=== PATIENT | female | born 1965 | race American Indian/Alaskan Native ===

== ENCOUNTER 2019-06-16 05:30 | Day surgery (SDC) | payer MEDICAID ==
[2019-06-16] MEDS ORDERED: fentaNYL 100 MCG/2 ML SDV IV ONE ×3 (05:31→06:29)
[2019-06-16] MEDS ORDERED: Midazolam 1 MG/ML 2 ML SDV IV ONE ×3 (05:31→06:30)
[2019-06-16] MEDS ORDERED: Dextrose 5%-0.45% NaCl 1,000 ML IV SCH ×2 (06:00→06:45)
[2019-06-16] MEDS ORDERED: Midazolam 1 MG/ML 2 ML SDV ONE (06:13)
[2019-06-16] MEDS ORDERED: fentaNYL 100 MCG/2 ML SDV ONE (06:13)
[2019-06-16] MEDS ORDERED: Sodium Chloride 0.9% 10 ML Syringe FLUSH PRN (06:42)
--- NOTE | 2019-06-16 07:17 | OR ---
DATE: 06/16/2019 PROCEDURE: Esophagogastroduodenoscopy and multiple pinch biopsies. INSTRUMENT USED: [id number]-HQ190 Olympus video panendoscope. PREMEDICATIONS: No oral or topical anesthesia used. Fentanyl 100 mcg intravenous, Versed 2 mg intravenous. The procedure was done under pulse oximetry, BP recording, and quality assurance monitor body. INDICATION: The patient with a long-standing heartburn along with upper abdominal pain, unexplained and not responsive to medical measures, on high-dose PPI as well as other acid suppressants. Esophagogastroduodenoscopy is performed for detection of any active erosive lesions, York esophagus and/or malignancy also under consideration, H. pylori status to be determined, endoscopic hemostasis therapy if needed. DESCRIPTION OF PROCEDURE: The scope was passed with ease. Adequate visualization of the esophagus was made from proximal to distal areas. No upper esophageal lesions identified. No distal esophageal stricture. No uphill or downhill esophageal varices. No Stacey-Casey tear. No evidence of erosive esophagitis by Melrose criteria. No esophageal polyp or tumor mass identified. Z-line was seen at around 40 cm distal to the oral verge, configuration consistent with grade 1 by ZAP classification. No proximal gastric varices noted. Gastric fundus examination by retroflexion showed no polypoid lesions. No gastric ulcer, malignant mass, or vascular ectasia identified. Mild patchy erythema was noted in the antrum. Duodenal bulb showed no ulcer. Visualized second part of the duodenum was unremarkable. Multiple pinch biopsies were taken from the gastric antrum and proximal body and sent for PyloriTek test for H. pylori, and if negative in an hour, the tissue is to be sent for histopathology. No bleeding was noted from any of the visualized areas at the completion of examination. Photographs were taken of the duodenal bulb, gastric antrum, fundus, and distal esophagus. IMPRESSION: Normal study. The patient tolerated the procedure well. [facility] /[id number]
[2019-06-16 09:03] VITALS: PULSE 76
[2019-06-16 09:04] VITALS: BP 115/74
== END 2019-06-16 08:38 | disposition home or self-care (01) ==
LOC: DL.ENDO 05:30
PROVIDERS: ATTEND Internal Medicine Gastroenterology
DX: R12 Heartburn (principal); R10.10 Upper abdominal pain, unspecified; I10 Essential (primary) hypertension; K21.9 Gastro-esophageal reflux disease without esophagitis; E66.09 Other obesity due to excess calories; Z90.49 Acquired absence of other specified parts of digestive tract; Z88.0 Allergy status to penicillin; Z88.2 Allergy status to sulfonamides; Z88.3 Allergy status to other anti-infective agents; Z88.5 Allergy status to narcotic agent; Z88.8 Allergy status to other drugs, medicaments and biological substances
CPT/HCPCS: 43239; 87077; J2250; J3010; J7042

== ENCOUNTER 2019-11-16 22:20 | Emergency (ER) | payer MEDICAID ==
[2019-11-16] MEDS ORDERED: diphenhydrAMINE 50 MG Cap PO ONE (22:21)
[2019-11-16] MEDS ORDERED: methylPREDNISolone Sodium Succinate 125 MG/2 ML SDV IVPUSH ONE (23:54)
[2019-11-16] MEDS ORDERED: diphenhydrAMINE 50 MG/ML SDV IVPUSH ONE (23:54)
[2019-11-16 23:55] VITALS: BP 164/70; PULSE 99
[2019-11-16] MEDS ORDERED: Famotidine 20 MG/2 ML SDV IVPUSH ONE (23:55)
[2019-11-17] MEDS ORDERED: Sodium Chloride 0.9% 500 ML IV ONE (00:01)
--- NOTE | 2019-11-17 00:28 | EDM.PDOC ---
ED HPI GENERAL MEDICAL PROBLEM - General Chief Complaint: Allergic Reaction Stated Complaint: ALERGIC REACTION TO MEDICATION Time Seen by Provider: 11/16/19 23:00 Source of Information: Reports: Patient History Limitations: Reports: No Limitations - History of Present Illness INITIAL COMMENTS - FREE TEXT/NARRATIVE: ED with c/o allergic reaction to some medication, unsure what. Eye swollen and feels like lower legs swollen sinc eafternoon. Has not tried anything. In GF today had MRI without contrast but noted that she had to to have breathing tube placed so she could lie on her back for the test. No rash, top of eyes feel like dry skin. No difficulty swallowing. No known change in diet or environmental products. - Related Data Allergies Allergy/AdvReac Type Severity Reaction Status Date / Time amoxicillin [Amoxicillin] Allergy Rash Verified 11/17/19 00:03 azithromycin [From Zithromax] Allergy Rash Verified 11/17/19 00:03 cyclobenzaprine Allergy Other Verified 11/17/19 00:03 metronidazole Allergy Headache Verified 11/17/19 00:03 nitrofurantoin Allergy Rash Verified 11/17/19 00:03 [From Macrodantin] Home Meds: Home Meds Fluticasone Propionate [Flovent HFA 44 MCG] 1 puff INH BID 11/13/13 [History] Triamterene/Hydrochlorothiazid [Triamterene-HCTZ 37.5-25 MG] 1 each PO DAILY 12/20 [History] ramipriL [Altace] 2.5 mg PO DAILY 11/13/13 [History] sitaGLIPtin Phos/Metformin HCl [Janumet 50-500 mg Tablet] 100 - 1,000 mg PO BID 11/13/13 [History] Fexofenadine [Page] 180 mg PO DAILY 02/15/16 [History] Ibuprofen [Motrin] 800 mg PO BID PRN 02/15/16 [History] methocarbamoL [Methocarbamol] 750 mg PO TID 02/15/16 [History] atorvaSTATin [Lipitor] 10 mg PO BEDTIME 07/07/17 [History] Acetaminophen [Acetaminophen Extra Strength] 1,000 mg PO Q6H PRN 06/15/19 [ History] Albuterol Sulfate [Proventil Hfa] 1 - 2 puff INH ASDIRECTED 06/15/19 [History] Diphenhyd/Lidocaine/Nystatin [Magic Mouthwash] 15 ml PO QID PRN 06/15/19 [ History] Famotidine 20 mg PO BID PRN 06/15/19 [History] Lidocaine-Menthol Patch 1 patch TOP ASDIRECTED PRN 06/15/19 [History] Montelukast [Singulair] 10 mg PO DAILY 06/15/19 [History] Simethicone 80 mg PO ASDIRECTED 06/15/19 [History] Past Medical History HEENT History: Reports: Allergic Rhinitis Cardiovascular History: Reports: High Cholesterol, Hypertension Respiratory History: Reports: Asthma Gastrointestinal History: Reports: Chronic Diarrhea, GERD Genitourinary History: Reports: None [employer] CONTROL [employer]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: Reports: Endometriosis Musculoskeletal History: Reports: Back Pain, Chronic, Neck Pain, Chronic Neurological History: Reports: None Psychiatric History: Reports: Anxiety, Other (See Below) Other Psychiatric History: CLAUSTROPHOBIA Endocrine/Metabolic History: Reports: Diabetes, Type II, Obesity/BMI 30+ Hematologic History: Reports: None Immunologic History: Reports: None Oncologic (Cancer) History: Reports: None Dermatologic History: Reports: None - Infectious Disease History Infectious Disease History: Reports: None - Past Surgical History Head Surgeries/Procedures: Reports: None HEENT Surgical History: Reports: Other (See Below) Other HEENT Surgeries/Procedures: S/P EXTERNAL EAR SURGERY Cardiovascular Surgical History: Reports: None Respiratory Surgical History: Reports: None GI Surgical History: Reports: Cholecystectomy, EGD Female Surgical History: Reports: Hysterectomy Endocrine Surgical History: Reports: None Neurological Surgical History: Reports: Laminectomy Musculoskeletal Surgical History: Reports: None Oncologic Surgical History: Reports: None Social & Family History - Family History Family Medical History: Noncontributory - Tobacco Use Smoking Status *Q: Never Smoker - Caffeine Use Caffeine Use: Reports: Coffee Other Caffeine Use: NO COFFEE FOR A FEW WEEKS - Recreational Drug Use Recreational Drug Use: No - Living Situation & Occupation Living situation: Reports: , with Family Occupation: Employed ED ROS ALLERGIC REACTION - Review of Systems Review Of Systems: Comprehensive ROS is negative, except as noted in HPI. ED EXAM GENERAL NO PERIP PULSE - Physical Exam Exam: See Below Exam Limited By: No Limitations General Appearance: Alert, Mild Distress, Obese Eye Exam: Bilateral Eye: Normal Fundi, Other (upper and lower lids mild swelling ) Ears: Normal External Exam Nose: Normal Inspection Throat/Mouth: Normal Inspection, Normal Lips, Normal Voice, No Airway Compromise Head: Atraumatic, Normocephalic Neck: Normal Inspection Respiratory/Chest: No Respiratory Distress, Lungs Clear, Normal Breath Sounds Cardiovascular: Normal Peripheral Pulses, Regular Rate, Rhythm, No Edema GI/Abdominal: Normal Bowel Sounds, Soft Back Exam: Decreased Range of Motion Extremities: Normal Inspection Psychiatric: Normal Affect Skin Exam: Warm, Dry, Intact, Normal Color Course - Vital Signs Last Recorded V/S: Last Vital Signs Temp 97.2 F 11/16/19 22:35 Pulse 99 11/16/19 22:35 Resp 18 11/16/19 22:35 BP 164/70 H 11/16/19 22:35 Pulse Ox 100 11/16/19 22:35 - Orders/Labs/Meds Meds: Medications Discontinued Medications Generic Name Dose Route Start Last Admin Trade Name Freq PRN Reason Stop Dose Admin Diphenhydramine HCl 25 mg 11/16/19 23:54 11/17/19 00:07 Benadryl IVPUSH 11/16/19 23:55 25 mg ONETIME ONE Administration Diphenhydramine HCl Confirm 11/17/19 00:33 11/17/19 01:07 Benadryl Administered 11/17/19 00:34 Not Given Dose 150 mg .ROUTE .STK-MED ONE Famotidine 20 mg 11/16/19 23:55 11/17/19 00:10 Pepcid IVPUSH 11/16/19 23:56 20 mg ONETIME ONE Administration Sodium Chloride 500 mls @ 150 mls/hr 11/17/19 00:01 11/17/19 00:04 Normal Saline IV 11/17/19 03:20 150 mls/hr .BOLUS ONE Administration Methylprednisolone Sodium Succinate 125 mg 11/16/19 23:54 11/17/19 00:04 Solu-Medrol IVPUSH 11/16/19 23:55 125 mg ONETIME ONE Administration - Re-Assessments/Exams Free Text/Narrative Re-Assessment/Exam: 11/17/19 02:03 Less edema to kim orbital area following benadryl Departure - Departure Time of Disposition: 00:26 Disposition: Home, Self-Care 01 Condition: Good Clinical Impression: Allergic reaction Qualifiers: Encounter type: initial encounter Qualified Code(s): T78.40XA - Allergy, unspecified, initial encounter - Discharge Information *PRESCRIPTION DRUG MONITORING PROGRAM REVIEWED*: Not Applicable *COPY OF PRESCRIPTION DRUG MONITORING REPORT IN PATIENT ANCA: Not Applicable Instructions: Allergies, Adult, [id number] Referrals: PCP,None [Primary Care Provider] - Forms: ED Department Discharge Additional Instructions: benadryl 25-50mg every 4 hours as needed for allergy symptoms pepcid 20mg one twice daily for 5 days follow with primary care this week urgent follow up if difficulty breathing Sepsis Event Note (ED) - Evaluation Sepsis Screening Result: No Definite Risk - Focused Exam Vital Signs: Vital Signs Temp Pulse Resp BP Pulse Ox 11/16/19 22:35 97.2 F 99 18 164/70 H 100
[2019-11-17] MEDS ORDERED: diphenhydrAMINE 50 MG Cap ONE (00:33)
== END 2019-11-17 00:37 | disposition home or self-care (01) ==
LOC: DL.ED 22:20
DX: T78.40XA Allergy, unspecified, initial encounter (principal); I10 Essential (primary) hypertension; E78.00 Pure hypercholesterolemia, unspecified; J45.909 Unspecified asthma, uncomplicated; K21.9 Gastro-esophageal reflux disease without esophagitis; F41.9 Anxiety disorder, unspecified; E66.9 Obesity, unspecified; Z68.34 Body mass index [BMI] 34.0-34.9, adult; Z88.1 Allergy status to other antibiotic agents; Z88.8 Allergy status to other drugs, medicaments and biological substances; Z79.899 Other long term (current) drug therapy
CPT/HCPCS: 96374; 96375; 99283; J1200; J2930; J3490; J7040; Q0163

== ENCOUNTER 2022-06-08 05:49 | Emergency (ER) | payer MEDICAID ==
[2022-06-08 06:13] VITALS: BP 164/88; PULSE 97
[2022-06-08] MEDS ORDERED: Ketorolac 30 MG/ML SDV IM ONE (06:44)
[2022-06-08] MEDS ORDERED: Orphenadrine 60 MG/2 ML Inj IM ONE (06:44)
== END 2022-06-08 08:56 | disposition home or self-care (01) ==
LOC: DL.ED 05:49
DX: G89.29 Other chronic pain (principal); M54.6 Pain in thoracic spine; E78.00 Pure hypercholesterolemia, unspecified; I10 Essential (primary) hypertension; E11.9 Type 2 diabetes mellitus without complications; E66.9 Obesity, unspecified; Z68.35 Body mass index [BMI] 35.0-35.9, adult; Z88.0 Allergy status to penicillin; Z88.1 Allergy status to other antibiotic agents; Z88.8 Allergy status to other drugs, medicaments and biological substances; Z79.899 Other long term (current) drug therapy; Z90.49 Acquired absence of other specified parts of digestive tract; Z90.710 Acquired absence of both cervix and uterus
CPT/HCPCS: 36415; 72040; 72070; 83735; 84443; 85025; 85651; 86140; 96372; 99283; J1885; J2360

== ENCOUNTER 2023-06-08 14:19 | Emergency (ER) | payer MEDICAID ==
[2023-06-08 15:53] VITALS: BP 144/70; PULSE 95
[2023-06-08] MEDS ORDERED: methylPREDNISolone Sodium Succinate 40 MG/1 ML SDV IM ONE (16:55)
[2023-06-08] MEDS ORDERED: cefTRIAXone 1 GM Vial IM ONE (16:55)
[2023-06-08] MEDS ORDERED: Cefuroxime 250 MG Tab PO ONE (16:59)
[2023-06-08] MEDS ORDERED: Take Home: predniSONE 20 MG, 4 Tab Pack PO ONE (16:59)
[2023-06-08] MEDS ORDERED: Albuterol 6.7 GM Inhaler INH ONE (16:59)
== END 2023-06-08 17:38 | disposition home or self-care (01) ==
LOC: DL.ED 14:19
DX: J06.9 Acute upper respiratory infection, unspecified (principal); I10 Essential (primary) hypertension; E78.00 Pure hypercholesterolemia, unspecified; K21.9 Gastro-esophageal reflux disease without esophagitis; E11.9 Type 2 diabetes mellitus without complications; Z88.0 Allergy status to penicillin; Z88.1 Allergy status to other antibiotic agents; Z88.8 Allergy status to other drugs, medicaments and biological substances; Z79.4 Long term (current) use of insulin; Z79.899 Other long term (current) drug therapy
CPT/HCPCS: 96372; 99284; A9270-GY; J0696; J2920